=== PATIENT | female | born 1965 | race Caucasian/White ===

== ENCOUNTER → 2016-09-16 | Outpatient (CLI) | payer BC ==
[~2016-09-16] MED LIST: EFFSR75 PO; HYDR-5688 PO; HYDR25TA5 PO; LOSA1TAB PO; SIMV-151 PO; SIMV40TA4 PO
--- NOTE | 2016-09-16 12:45 | MAMMOGRAPHY REPORT ---
UNILATERAL RIGHT DIGITAL DIAGNOSTIC MAMMOGRAM WITH CAD: 09/16/2016 CLINICAL HISTORY: Short interval follow-up of right breast calcifications. Stereotactic biopsy was attempted March 2016, however, the calcifications could not be biopsied due to the far posterior infe rior location. TECHNIQUE: Current study was also evaluated with a Computer Aided Detection (CAD) system. Right CC and MLO and CCL views and spot magnification right cc and ML views were obtained. COMPARISON: Comparison is made to exams dated: 03/08/2016 mammogram, 02/25/2016 mammogram, and 02/19/20 16 mammogram - [facility]. BREAST COMPOSITION: The tissue of the right breast is heterogeneously dense, which may obscure smal l masses. FINDINGS: Again noted are grouped punctate and amorphous calcifications in the right lower outer quadrant far posteriorly and inferiorly, measuring approximately 14 mm in greatest extent. The calcifications ap pear slightly increased in number compared to spot magnification views from the February 2016 exam. Giv en the interval increase in calcifications, surgical biopsy is recommended to exclude the possibilit y of DCIS. The remainder of the right breast is stable compared to prior exams, without suspicious masses, calc ifications, or areas of architectural distortion noted. Other scattered benign-appearing calcificat ions are stable; many of the calcifications demonstrate layering on the MLO view, consistent with be nign milk of calcium. IMPRESSION: ACR BI-RADS CATEGORY 4: SUSPICIOUS Grouped calcifications in the right lower outer quadrant posteriorly appear increased compared to th e February 2016 exam, and are therefore indeterminate. As stereotactic biopsy could not be performed du e to the far posterior/inferior location, surgical biopsy is recommended. A phone call was made to the physician's office to confirm faxed results were received. The patient has been verbally notified of the results. Approximately 10% of breast cancers are not detected with mammography. A negative mammographic repor t should not delay biopsy if a clinically suggestive mass is present. Cristiana Escobar M.D. /:09/16/2016 09:18:36 Concrete Foreman: Arianne MOBLEY(R)(M), [facility] letter sent: Abnormal 4/5 BI-RADS Code: ACR BI-RADS Category 4: Suspicious
== END | disposition home or self-care (01) ==
LOC: C.MAMM 08:11
PROVIDERS: ATTEND Internal Medicine
DX: R92.1 Mammographic calcification found on diagnostic imaging of breast (principal)

== ENCOUNTER → 2016-09-22 | Outpatient (CLI) | payer BC | END | disposition home or self-care (01) | LOC: C.CPL 17:11 | PROVIDERS: ATTEND Surgery | DX: R92.8 Other abnormal and inconclusive findings on diagnostic imaging of breast (principal) ==

== ENCOUNTER 2016-09-29 09:05 | Day surgery (SDC) | payer BC, OTHER ==
[2016-09-23 16:08] VITALS: BMI 51.0
[~2016-09-29] VITALS: Ht 167.6 cm; Wt 143.2 kg
[~2016-09-29 09:05] MED LIST changes: +ATROPINE SULFATE 0.1 MG/ML 5ML SYR IV PRN; +CEFAZOLIN 3000 MG/65 ML D5W IV SCH; +EpHEDrine SULFATE INJ 50 MG/ML AMP IV PRN; +FENTANYL CITRATE INJ 50 MCG/1 ML 2 ML VIAL IV PRN; -HYDR-5688 PO; +LACTATED RINGER'S 1000ML 1,000 ML IV SCH
[2016-09-29 09:11] VITALS: BP 128/72; PULSE 93; TEMP 37.6; O2SAT 98; Ht 167.6 cm; Wt 143.2 kg
--- NOTE | 2016-09-29 09:54 | History & Physical Bridge Note ---
H&P Re-Evaluation Bridge Note: I have examined the patient, reviewed the History & Physical and in the interval since the performance of the History & Physical I have noted the following changes of clinical significance: No changes noted
[2016-09-29] MEDS ORDERED: HYDR-5688 PO (09:55)
--- NOTE | 2016-09-29 09:57 | Discharge Instructions ---
Discharge Instructions Admission Reason for Admission: Abnormal Right Mammogram Discharge Discharge Diagnosis / Problem: abnormal right mammogram Discharge Goals Goal(s): Diagnostic testing Activity Recommendations Activity Limitations: as noted below Lifting Limitations: gradually increase as tolerated Exercise/Sports Limitations: until after follow-up appointment Shower/Bathe: tomorrow . Instructions / Follow-Up Instructions / Follow-Up f/u with Dr. Tim in 2 weeks Current Hospital Diet Patient's current hospital diet: Discharge Diet Recommended Diet: Regular Diet Procedures Procedures Performed: excisional left breast bx after needle localization Pending Studies Studies pending at discharge: yes (pathology report) List of pending studies: path report Laboratory Results Hemoglobin A1c Test 08/30/16 08:11 Range/Units Estimated Average Glucose 123 mg/dl Hemoglobin A1c 5.9 H 4.5-5.6 % Lipid Panel Test 08/30/16 08:11 Range/Units Triglycerides Level 220 H 0-150 mg/dl Cholesterol Level 192 0-200 mg/dl HDL Cholesterol 42 mg/dl Cholesterol/HDL Ratio 4.6 LDL Cholesterol, Calculated 106 mg/dl Medical Emergencies . Who to Call and When: Medical Emergencies: If at any time you feel your situation is an emergency, please call 911 immediately. . Non-Emergent Contact Non-Emergency issues call your: Primary Care Provider, Surgeon Call Non-Emergent contact if: temperature is above 101, wound has increased drainage, wound has increased redness, wound has increased pain . "Provider Documentation" section prepared by Aaron Tim. VTE Core Measure Inpt VTE Proph given/why not?: SCD's
[2016-09-29] MEDS ORDERED: PROPOFOL IV EMULSION 10 MG/ML 20 ML VIAL IV ONE (10:09)
[2016-09-29] MEDS ORDERED: LIDOCAINE HCL 2% 2 ML VIAL (20MG/ML) ONE (10:10)
[2016-09-29] MEDS ORDERED: MIDAZOLAM HCL 1 MG/ML 2ML VIAL ONE (10:10)
[2016-09-29] MEDS ORDERED: FENTANYL CITRATE INJ 50 MCG/1 ML 2 ML VIAL ONE ×2 (10:11→10:42)
[2016-09-29] MEDS ORDERED: ARISTA ABSORBABLE HEMOSTAT 3GM TOP ONE (11:34)
[2016-09-29] MEDS ORDERED: BUPIVACAINE/EPINEPHRINE 0.5% MPF 1:200,000 30 ML VIAL INJ ONE (11:36)
[2016-09-29] MEDS ORDERED: SODIUM CHLORIDE 0.9% 1000ML 1,000 ML IV SCH (11:43)
[2016-09-29] MEDS ORDERED: IBUPROFEN 600 MG TAB PO PRN (11:45)
[2016-09-29] MEDS ORDERED: MoRPHine SULFATE 4 MG/ML 1 ML CARP\\VIAL IV PRN (11:45)
[2016-09-29] MEDS ORDERED: ONDANSETRON INJ 2 MG/ML 2 ML VIAL IV PRN (11:45)
[2016-09-29] MEDS ORDERED: HYDROCODONE/ACETAMOPHEN 5/325MG TAB PO PRN ×2 (11:45)
--- NOTE | 2016-09-29 11:46 | [facility] Operative Report ---
Operative Report Operative Date Sep 29, 2016. Pre-Operative Diagnosis Abnormal Mammogram, Right Breast Post-Operative Diagnosis abnormal mammogram right breast Surgeon Dr. Aaron Tim Project Development Director Surgeon(s) None per surgeon Estimated Blood Loss 50 mL Findings normal breast tissue clinically. sent to path Specimens Fresh Specimen A: Right breast biopsy: wire inferior, long stitch lateral, 2 short silk stitch superior Sent to Breast Center at 1128. Complication(s) None Disposition Recovery Room / PACU I attest to the content of the Intraoperative Record and any orders documented therein. Any exceptions are noted below.
[2016-09-29] MEDS ORDERED: ROCURONIUM BROMIDE 10 MG/ML 5 ML VIAL ONE (12:13)
[2016-09-29] MEDS ORDERED: SUCCINYLCHOLINE CHLORIDE 20 MG/ML 10 ML VIAL IV ONE (12:13)
[2016-09-29] MEDS ORDERED: DEXAMETHASONE SOD INJ 4 MG/ML VIAL ONE (12:13)
[2016-09-29] MEDS ORDERED: ONDANSETRON INJ 2 MG/ML 2 ML VIAL ONE (12:13)
--- NOTE | 2016-09-29 12:22 | OPERATIVE REPORT ---
DATE OF OPERATION: 09/29/2016 PREOPERATIVE DIAGNOSIS: Abnormality on the right breast mammogram. POSTOPERATIVE DIAGNOSIS: Same. PROCEDURE: Right breast excisional biopsy after needle localization. SURGEON: Dr. Tim. ESTIMATED BLOOD LOSS: Approximately 50 mL. COMPLICATIONS: No immediate complications. ANESTHESIA: General. The patient tolerated the procedure well. OPERATION AND FINDINGS: OPERATIVE NOTE: Prior to bringing her to the OR the patient was taken to the breast center where a needle localization was performed on some calcifications. She was brought to the operating suite and placed in supine position. After successful intubation the right breast was sterilely prepped and draped in usual fashion including the wire. I began by making currently on air incision in the anterior portion of her breast overlying where the calcifications would be. We made superior and inferior skin flaps and continued to slowly dissect normal breast tissue around the area of the needle localization. Because of the posterior nature of the calcification we carried this dissection the whole way down to the chest wall. I continued to use traction, counter traction and electrocautery to take out an excisional breast biopsy. We took a cord tissue again the whole way down to the chest wall, which incorporated the anchor of the wire. After I removed the specimen I oriented it such that there was 1 long suture laterally and 2 short ones superiorly and the wire came in from an anterior position. We then controlled any bleeding points using electrocautery. I thoroughly irrigated the wound. There was adequate hemostasis at the end of the procedure. I did place 1 gram of Marli to help with postoperative seroma hematoma. I then closed the wound using 2-0 Vicryl for the deep layers, 3-0 Vicryl for the superficial layers and 4-0 Monocryl for the skin. Marcaine was injected around the area for postoperative analgesia and sterile dressing was applied. The patient was awakened, extubated, and transferred to recovery in stable condition. Postoperative x-ray of the specimen is still currently pending to ensure that the calcifications were obtained. I attest to the content of the Intraoperative Record and any orders documented therein. Any exceptio ns are noted below.
--- NOTE | 2016-09-29 12:51 | Anesthesiology Progress Note ---
Anesthesia Post Op Note Date & Time Sep 29, 2016 at 12:50 Vital Signs Pain Intensity: 4 Vital Signs Past 12 Hours Date Time Temp Pulse Resp B/P Pulse Ox O2 Delivery O2 Flow Rate FiO2 09/29/16 12:40 109 18 101/62 91 Room Air 09/29/16 12:30 113 19 123/63 92 Room Air 09/29/16 12:20 110 23 115/74 96 Mask 10 09/29/16 12:10 110 23 123/82 95 Mask 10 09/29/16 12:00 112 23 127/78 95 Mask 10 09/29/16 11:54 36.2 113 22 132/80 95 Mask 10 Manual 09/29/16 09:11 37.6 93 20 128/72 98 Room Air Notes Mental Status: alert / awake / arousable, participated in evaluation Pt Amnestic to Procedure: Yes Nausea / Vomiting: adequately controlled Pain: adequately controlled Airway Patency, RR, SpO2: stable & adequate BP & HR: stable & adequate Hydration State: stable & adequate Anesthetic Complications: no major complications apparent
[2016-09-29 12:55] VITALS: BP 113/65; PULSE 111; TEMP 37.3; O2SAT 91
[2016-09-29] MEDS ORDERED: HYDROCODONE/ACETAMOPHEN 5/325MG TAB ONE (13:14)
[2016-09-29 13:55] VITALS: BP 102/67; PULSE 109; TEMP 36.6; O2SAT 93
== END 2016-09-29 14:20 | disposition home or self-care (01) ==
LOC: C.ACU 09:05
PROVIDERS: ATTEND Surgery
DX: N62 Hypertrophy of breast (principal); R92.8 Other abnormal and inconclusive findings on diagnostic imaging of breast; C44.310 Basal cell carcinoma of skin of unspecified parts of face; H66.90 Otitis media, unspecified, unspecified ear; E78.5 Hyperlipidemia, unspecified; G51.0 Bell's palsy; H91.93 Unspecified hearing loss, bilateral; F41.9 Anxiety disorder, unspecified; J01.90 Acute sinusitis, unspecified; M10.9 Gout, unspecified; I10 Essential (primary) hypertension; E66.01 Morbid (severe) obesity due to excess calories

== ENCOUNTER → 2016-09-29 | Outpatient (CLI) | payer BC ==
[~2016-09-29] MED LIST changes: -SIMV-151 PO
--- NOTE | 2016-09-29 14:51 | MAMMOGRAPHY REPORT ---
NEEDLE LOCALIZATION RIGHT BREAST: 09/29/2016 CLINICAL HISTORY: Indeterminate calcifications in the right lower outer quadrant far posteriorly. PROCEDURE DESCRIPTION: With imaging guidance, aseptic technique, and 1% lidocaine as the local anes thetic, the calcifications of concern were localized with a 5 cm Goins II needle. The path of raya mcrae was caudocranial. The small cluster of calcifications is located along the distal portion of the wire, at the tip of the wire. The needle was removed. The patient tolerated the procedure with out complication. Results were discussed with Dr. Tim over the telephone. COMPARISON: Comparison is made to exams dated: 03/08/2016 mammogram, 02/25/2016 mammogram, 02/19/2016 m ammogram, and 09/16/2016 mammogram - [facility]. IMPRESSION: NEEDLE LOCALIZATION Mammographic guided needle localization of indeterminate cluster of calcifications in the right lowe r outer quadrant posteriorly. Cristiana Escobar M.D. ah/:09/29/2016 09:17:09 C Iron Worker: Arianne MOBLEY(R)(M), [facility]
--- NOTE | 2016-10-03 08:41 | MAMMOGRAPHY REPORT ---
SPECIMEN RIGHT BREAST: 09/29/2016 CLINICAL HISTORY: Status post right breast surgical excision. COMPARISON: Comparison is made to exams dated: 09/16/2016 mammogram, 03/08/2016 mammogram, 02/25/2016 m ammogram, and 02/19/2016 mammogram - [facility]. Findings: A radiograph was performed of the right breast surgical specimen. The localized cluster o f calcifications is present within the specimen. The intact needle localization wire is also presen t. Results were discussed with Dr. Tim. IMPRESSION: SPECIMEN The imaged specimen contains the localized cluster of calcifications. Cristiana Escobar M.D. /:09/29/2016 12:25:14 Ripsaw Grader: Arianne MOBLEY(R)(M), [facility]
== END | disposition home or self-care (01) ==
LOC: C.MAMM 07:55
PROVIDERS: ATTEND Surgery
DX: R92.1 Mammographic calcification found on diagnostic imaging of breast (principal)

== ENCOUNTER → 2017-03-23 | Outpatient (CLI) | payer BC ==
[~2017-03-23] MED LIST changes: -ATROPINE SULFATE 0.1 MG/ML 5ML SYR IV PRN; -CEFAZOLIN 3000 MG/65 ML D5W IV SCH; -EpHEDrine SULFATE INJ 50 MG/ML AMP IV PRN; -FENTANYL CITRATE INJ 50 MCG/1 ML 2 ML VIAL IV PRN; +HYDR-5688 PO; -LACTATED RINGER'S 1000ML 1,000 ML IV SCH
== END | disposition home or self-care (01) ==
LOC: C.PAPS 14:14
PROVIDERS: ATTEND Nurse Practitioner
DX: Z01.419 Encounter for gynecological examination (general) (routine) without abnormal findings (principal)

== ENCOUNTER → 2017-03-29 | Outpatient (CLI) | payer BC ==
--- NOTE | 2017-03-29 12:44 | MAMMOGRAPHY REPORT ---
BILATERAL DIGITAL DIAGNOSTIC MAMMOGRAM TOMOSYNTHESIS WITH CAD AND TARGETED LEFT ULTRASOUND: 03/29/2017 CLINICAL HISTORY: 51 year-old woman who presents for first follow-up in the left breast after a surgi benjy excisional biopsy of clustered microcalcifications in the lower outer posterior breast yielded: " atypical ductal hyperplasia, usual ductal hyperplasia, an intraductal papilloma, columnar cell hyperp lasia, fibrocystic change, duct ectasia and microcalcification associated with benign ductal elements ." Also time of bilateral screening mammography. TECHNIQUE: Bilateral breast tomosynthesis in addition to standard 2D mammography was performed. Spot magnification views were also performed in the lower outer posterior right breast. Current study wa s also evaluated with a Computer Aided Detection (CAD) system. COMPARISON: Comparison is made to exams dated: 09/16/2016 mammogram, 03/08/2016 mammogram, 02/25/2016 ma mmogram, and 02/19/2016 mammogram - [facility]. BREAST COMPOSITION: The tissue of both breasts is heterogeneously dense, which may obscure small mas ses. FINDINGS: A linear scar marker overlies the 6:00 to 7:00 posterior right breast, denoting the surgic al scar from prior excisional biopsy. On the spot magnification views near the surgical site, no clu stered microcalcifications are seen. There are 4 stable round monomorphic benign-appearing microcalc ifications in the left upper outer quadrant. A few scattered punctate benign-appearing right breast microcalcifications. In the upper outer anterior left breast, there is a circumscribed, 2.1 x 2.2 x 1.8 cm mass. No associated calcification or architectural distortion. This was not definitely ident ified on the prior mammogram and definitive characterization with ultrasound is recommended. No othe r new mass, focal area of architectural distortion or suspicious microcalcifications are identified b ilaterally. Targeted ultrasound was performed in the upper outer quadrant of the left breast. In the 2:00 axis, 1 cm from the nipple, there is a circumscribed hypoechoic solid-appearing mass measuring 1.5 x 1.1 x 2.1 cm. This correlates with the mammographic mass and although it could represent a benign fibroade noma, definitive characterization with an ultrasound-guided core needle biopsy is recommended. IMPRESSION: ACR BI-RADS CATEGORY 4A: LOW SUSPICION FOR MALIGNANCY, TARGETED ULTRASOUND ACR BI-RADS C ATEGORY 4A: LOW SUSPICION FOR MALIGNANCY 1. Ultrasound guided core biopsy is recommended for an indeterminate solid 2.1 cm mass in the 2:00 l eft breast, which could represent a fibroadenoma. 2. Otherwise stable mammographic appearance of the left breast. 3. Stable postsurgical changes in the right breast, without mammographic evidence of malignancy. These results and recommendations were discussed with the patient at the time of the exam. She tenta tively scheduled a left breast ultrasound guided core biopsy prior to leaving our department. Approximately 10% of breast cancers are not detected with mammography. A negative mammographic report should not delay biopsy if a clinically suggestive mass is present. Sindy Adames M.D. ay/:03/29/2017 12:34:13 Manager Bakery: Sherrie MCRAE)(Shama), [facility] letter sent: Abnormal 4/5 BI-RADS Code: ACR BI-RADS Category 4A: Low Suspicion For Malignancy Ultrasound BI-RADS: ACR BI-RADS Category 4A: Low Suspicion For Malignancy
== END | disposition home or self-care (01) ==
LOC: C.MAMM 09:07
PROVIDERS: ATTEND Internal Medicine
DX: Z09 Encounter for follow-up examination after completed treatment for conditions other than malignant neoplasm (principal); N63 Unspecified lump in breast

== ENCOUNTER → 2017-04-05 | Outpatient (CLI) | payer BC ==
[~2017-04-05] MED LIST changes: -HYDR-5688 PO
--- NOTE | 2017-04-05 13:41 | MAMMOGRAPHY REPORT ---
ASPIRATION LEFT BREAST: 04/05/2017 CLINICAL HISTORY: Left 2:00 breast mass. PATIENT CONSENT: The procedure and risks of ultrasound-guided cyst biopsy versus aspiration were disc ussed in full with the patient. Both oral and written consents were obtained. PROCEDURE DESCRIPTION: During the preprocedural ultrasound, the echoes inside the mass were shown to be mobile suggestive of a complicated cyst, therefore the decision was made to attempt aspiration. W ith ultrasound guidance, aseptic technique, and 1% lidocaine as a local anesthetic (1% lidocaine to a nesthetize the skin and 1% lidocaine with epinephrine to anesthetize the deeper tissues), the mass of concern in the left 2:00 breast was aspirated to completion. Benign type brownish-yellow fluid was aspirated and discarded. Direct pressure was applied to the site immediately post procedure and hemo stasis was achieved. The patient tolerated the procedure without complication. COMPARISON: Comparison is made to exams dated: 04/05/2017 ultrasound biopsy, 03/29/2017 ultrasound, 03/05 mammogram, 09/16/2016 mammogram, 03/08/2016 mammogram, and 02/25/2016 mammogram - [facility]. IMPRESSION: ASPIRATION Successful ultrasound-guided aspiration of the left 2:00 breast mass. Given that the mass completely aspirated, it is consistent with a benign cyst. The aspirated fluid was discarded. Return to annual mammogram screening schedule is recommended. Cristiana Escobar M.D. /:04/05/2017 08:55:45 Set Up Mold Technician: Arianne Burdick, [facility]
== END | disposition home or self-care (01) ==
LOC: C.MAMM 08:21
PROVIDERS: ATTEND Internal Medicine
DX: N60.02 Solitary cyst of left breast (principal)